=== PATIENT | male | born 1950 | race Caucasian/White ===

== ENCOUNTER 2023-01-14 13:22 | Outpatient (REF) | payer OTHER, SELFPAY ==
--- NOTE | ~2023-01-14 | XR_ITS ---
EXAMINATION: XR hip BI w PEL1V, XR lumbar spine 6V w bending CLINICAL INFORMATION: Reason for Exam M25.551 - Pain in right hip COMPARISON: None TECHNIQUE: 7 views of the lumbar spine. One view of the pelvis and 2 views of each hip. FINDINGS: 5 nonrib-bearing lumbar-type vertebral bodies. Vertebral body heights are maintained. Levoconvex curvature of the lumbar spine. No instability on flexion extension views. Advanced multilevel degenerative disc disease with loss of disc space height and facet arthropathy worst at L3-L4 through L5-S1. Question of possible left L2 pars defect versus overlying bowel gas. Paravertebral soft tissues are unremarkable. No acute hip fracture. Mild degenerative changes of the bilateral hips with subchondral sclerosis and cystic change. XR/XR lumbar spine 6V w bending IMPRESSION: 1. Levoconvex curvature of the lumbar spine. No instability on flexion extension views. 2. Advanced multilevel degenerative disc disease with loss of disc space height and facet arthropathy worst at L3-L4 through L5-S1. 3. Mild degenerative changes of the bilateral hips with subchondral sclerosis and cystic change. 4. Question of possible left L2 pars defect versus overlying bowel gas. This can be confirmed with CT lumbar spine if warranted.
--- NOTE | ~2023-01-14 | XR_ITS ---
EXAMINATION: XR hip BI w PEL1V, XR lumbar spine 6V w bending CLINICAL INFORMATION: Reason for Exam M25.551 - Pain in right hip COMPARISON: None TECHNIQUE: 7 views of the lumbar spine. One view of the pelvis and 2 views of each hip. FINDINGS: 5 nonrib-bearing lumbar-type vertebral bodies. Vertebral body heights are maintained. Levoconvex curvature of the lumbar spine. No instability on flexion extension views. Advanced multilevel degenerative disc disease with loss of disc space height and facet arthropathy worst at L3-L4 through L5-S1. Question of possible left L2 pars defect versus overlying bowel gas. Paravertebral soft tissues are unremarkable. No acute hip fracture. Mild degenerative changes of the bilateral hips with subchondral sclerosis and cystic change. XR/XR hip BI w PEL1V IMPRESSION: 1. Levoconvex curvature of the lumbar spine. No instability on flexion extension views. 2. Advanced multilevel degenerative disc disease with loss of disc space height and facet arthropathy worst at L3-L4 through L5-S1. 3. Mild degenerative changes of the bilateral hips with subchondral sclerosis and cystic change. 4. Question of possible left L2 pars defect versus overlying bowel gas. This can be confirmed with CT lumbar spine if warranted.
== END 2023-01-14 13:23 | disposition home or self-care (01) ==
LOC: CF 13:22
PROVIDERS: PCP Internal Medicine; Visit Provider Nurse Practitioner Family
DX: M47.816 Spondylosis without myelopathy or radiculopathy, lumbar region (principal); M25.551 Pain in right hip; M25.552 Pain in left hip; M62.830 Muscle spasm of back
CPT/HCPCS: 72114; 73521